=== PATIENT | female | born 1990 | race African-American/Black ===

== ENCOUNTER 2017-03-01 10:39 | Emergency (ER) | payer OTHER ==
--- NOTE | ~2017-03-01 | CR206 ---
[facility] A Service of [facility] & [facility] RADIOLOGY TEXT RESULTS PATIENT: GALLO UMANA LOCATION: [place] : [birth year] UNIT #: [id number] AGE: [address]: Dannie Champion MD SEX: F ORDER DR: [id number] [id number] [facility]. [place], [place] [address] [id number] MR#: [id number] Acc #: [id number] NAME: GALLO UMANA : 1990 SEX: F STUDY DATE/TIME: 03/01/2017 11:00 UNIT: [facility] ROOM: STUDY DESCRIPTION: CR Pelvis 1 or 2 Views Attending Physician: Dannie Champion M.D. Ordering Physician: Dannie Champion M.D. Primary Care Physician: No Primary Care Physician MEDICAL IMAGING REPORT This report is preliminary unless electronic signature is present EXAM 2 views of the pelvis. HISTORY Right hip pain after falling out of bed last night. COMPARISON No comparisons. FINDINGS The alignment is normal. There is no fracture. IMPRESSION Negative. Dictated by... Toni Mcneal M.D. THIS IS AN ELECTRONICALLY VERIFIED REPORT Toni Mcneal M.D. at 03/02/2017 8:57 AM Anushka TD: 03/01/2017 12:47 JOB #: [id number] MEDICAL IMAGING REPORT Page 1 of 1 COPY
[~2017-03-01 10:39] MED LIST: FLAGYL PO; IRON; PRENATAL MULTIV1 TA1; VOLTAREN75 MG PO
== END 2017-03-01 11:49 | disposition home or self-care (01) ==
LOC: CFTX 10:39
DX: S70.01XA Contusion of right hip, initial encounter (principal); F17.200 Nicotine dependence, unspecified, uncomplicated; W06.XXXA Fall from bed, initial encounter; Y92.009 Unspecified place in unspecified non-institutional (private) residence as the place of occurrence of the external cause
CPT/HCPCS: 72170; 84703; 96372; 99283; J1885